=== PATIENT | female | born 2000 | race Two or more races ===

== ENCOUNTER 2021-01-09 17:44 | Emergency (ER) | payer MEDICAID ==
[~2021-01-09] VITALS: Ht 160 cm; Wt 58.1 kg
[2021-01-09 17:48] VITALS: BP 121/60
== END 2021-01-09 18:31 | disposition home or self-care (01) ==
LOC: ER 17:46
DX: F17.200 Nicotine dependence, unspecified, uncomplicated (principal); F41.9 Anxiety disorder, unspecified; F32.9 Major depressive disorder, single episode, unspecified